=== PATIENT | male | born 1990 | race Two or more races ===

== ENCOUNTER 2017-03-01 11:41 | Emergency (ER) | payer MEDICAID ==
[~2017-03-01] VITALS: Ht 177.8 cm; Wt 77.1 kg
[2017-03-01 12:55] LABS: Basophils # (auto) 0 uL; Basophils % (auto) 0.4 % (0.0-2.0); Eosinophils # (auto) 0.1 uL; Eosinophils % (auto) 0.7 % (0.0-7.0); Hematocrit 45.8 % (41.0-53.0); Hemoglobin 15.6 g/dL (13.5-17.5); Lymphocytes # (auto) 1.8 uL; Lymphocytes % (auto) 16.1 % (10.0-50.0); Mean Corpuscular Hemoglobin 31.3 pg (28.0-32.0); Mean Corpuscular Hgb Conc. 34.2 g/dL (32.0-36.0); Mean Corpuscular Volume 91.6 fL (80.0-100.0); Mean Platelet Volume 7.9 fL (6.9-10.8); Monocytes # (auto) 0.8 uL; Monocytes % (auto) 7.1 % (0.0-12.0); Neutrophils # (auto) 8.4 uL; Neutrophils % (auto) 75.7 % (37.0-80.0); Nucleated Red Blood Cells % 0.1 %; Platelet Count (auto) 233 10^3/uL (140-450); Red Cell Distribution Width 12.8 % (11.8-14.3)
[2017-03-01 13:10] LABS: Albumin 4.4 g/dL (3.4-5.0); Anion Gap 7 (5-15); Blood Urea Nitrogen 13 mg/dL (7-18); Calcium 9.1 mg/dL (8.5-10.1); Carbon Dioxide 26 mmol/L (21-32); Chloride 110 mmol/L (98-107); Glucose 86 mg/dL (74-106); Magnesium 2.1 mg/dL (1.6-2.6); Potassium 4.2 mmol/L (3.5-5.1); Sodium 143 mmol/L (136-145)
[2017-03-01 13:13] LABS: Aspartate Aminotransferase 14 U/L (15-37); BUN/Creatinine Ratio 14.8; GFR African American 134 mL/min; GFR Non-African American 110 mL/min
[2017-03-01 13:18] LABS: Alkaline Phosphatase 102 U/L (45-117); Bilirubin, Total 0.2 mg/dL (0.2-1.0); Total Protein 7.9 g/dL (6.4-8.2)
[2017-03-01 14:12] LABS: Urine Bilirubin Negative (Negative); Urine Blood Negative /uL (Negative); Urine Glucose Normal (Normal); Urine Ketone Negative (Negative); Urine Nitrite Negative (Negative); Urine RBC <1 /hpf (0 - 3); Urine Urobilinogen Normal (Negative)
[2017-03-01 14:13] LABS: Urine Color Straw (Yellow)
[2017-03-01] MEDS ORDERED: cefTRIAXone W LIDOCAINE 1 GM IM IM ONE (20:45)
[2017-03-01] MEDS ORDERED: ASPirin 81 mg TAB PO ONE (20:45)
[2017-03-01 21:04] VITALS: BP 125/75
== END 2017-03-01 21:08 | disposition home or self-care (01) ==
LOC: ER 11:41 → EDBD 11:41 → EDUNIT# 11:41 → ER 21:08
DX: F12.10 Cannabis abuse, uncomplicated (principal); R07.89 Other chest pain; F17.210 Nicotine dependence, cigarettes, uncomplicated
CPT/HCPCS: 36415; 71020; 80053; 81001; 83735; 84484; 85025; 93005; 96372; 99285; J0696

== ENCOUNTER 2017-03-03 22:07 | Inpatient (IN) | payer MEDICAID ==
[~2017-03-03] VITALS: Ht 177.8 cm; Wt 81.4 kg
[2017-03-03 23:45] LABS: Urine Bilirubin Negative (Negative); Urine Blood Negative /uL (Negative); Urine Color Yellow (Yellow); Urine Glucose 3+ mg/dL (Normal); Urine Ketone 1+ (Negative); Urine Mucus FEW (None Seen); Urine Nitrite Negative (Negative); Urine RBC 1 /hpf (0 - 3); Urine Squamous Epithelial Cell FEW /hpf (<5); Urine pH 6.5 (5.0-8.0)
[2017-03-03 23:46] LABS: Basophils # (auto) 0.1 uL; Basophils % (auto) 0.3 % (0.0-2.0); Eosinophils # (auto) 0 uL; Eosinophils % (auto) 0.1 % (0.0-7.0); Hematocrit 42.4 % (41.0-53.0); Hemoglobin 14.3 g/dL (13.5-17.5); Lymphocytes # (auto) 1.8 uL; Lymphocytes % (auto) 9.6 % (10.0-50.0); Mean Corpuscular Hemoglobin 30.7 pg (28.0-32.0); Mean Corpuscular Hgb Conc. 33.8 g/dL (32.0-36.0); Mean Corpuscular Volume 90.9 fL (80.0-100.0); Mean Platelet Volume 7.8 fL (6.9-10.8); Monocytes # (auto) 1.2 uL; Monocytes % (auto) 6.2 % (0.0-12.0); Neutrophils % (auto) 83.8 % (37.0-80.0); Platelet Count (auto) 236 10^3/uL (140-450); Red Cell Distribution Width 12.7 % (11.8-14.3)
[2017-03-04 00:01] LABS: Albumin 4.2 g/dL (3.4-5.0); Anion Gap 14 (5-15); BUN/Creatinine Ratio 11.2; Blood Urea Nitrogen 12 mg/dL (7-18); Calcium 8.4 mg/dL (8.5-10.1); Carbon Dioxide 23 mmol/L (21-32); Chloride 106 mmol/L (98-107); GFR African American 107 mL/min; GFR Non-African American 88 mL/min; Glucose 240 mg/dL (74-106); Sodium 143 mmol/L (136-145)
[2017-03-04 00:06] LABS: Alkaline Phosphatase 91 U/L (45-117); Aspartate Aminotransferase 22 U/L (15-37); Bilirubin, Total 0.4 mg/dL (0.2-1.0); Total Protein 7.6 g/dL (6.4-8.2)
[2017-03-04] MEDS ORDERED: cefTRIAXone 1GM/50ML D5W 50 ML IV ONE (02:00)
[2017-03-04] MEDS ORDERED: SODIUM CHLORIDE 0.9% 1,000 ML IV ONE ×2 (02:40→05:45)
[2017-03-04] MEDS: POTASSIUM CHL 20MEQ/100ML 100 ML IV SCH ×2 (02:42→04:28)
[2017-03-04] MEDS ORDERED: InsuLIN REG 1unit/0.01ml Soln (100units/ml) IV ONE (03:45)
[2017-03-04 04:18] LABS: Lactic Acid w/Reflex 5.8 mmol/L (0.4-2.0)
[2017-03-04 04:21] LABS: REFLEX LACTIC ACID YES OR NO YES
[2017-03-04] MEDS ORDERED: ACETAMINOPHEN 500 MG TAB PO PRN (05:45)
[2017-03-04] MEDS ORDERED: DEXTROSE (50%) 50ML SYRG IV PRN (05:45)
[2017-03-04] MEDS ORDERED: ONDANSETRON HCL 4 MG/2 ML VIAL IV PRN (05:45)
[2017-03-04] MEDS: InsuLIN REG 1unit/0.01ml Soln (100units/ml) SC SCH ×2 (05:58→11:29)
[2017-03-04] MEDS: ACCU-CHEK COMFORT CURVE STRIP VI SCH ×2 (05:58→11:28)
[2017-03-04] MEDS ORDERED: metroNIDAZOLE 500 MG TAB PO SCH (06:00)
[2017-03-04 09:00] VITALS: BP 121/64
[2017-03-04] MEDS ORDERED: INFLUENZA QUAD 2017-2018 0.5 ML SYRG IM ONE (10:15)
[2017-03-04 12:54] VITALS: BP 132/73
[2017-03-04 14:02] LABS: Basophils # (auto) 0 uL; Basophils % (auto) 0.3 % (0.0-2.0); Eosinophils # (auto) 0 uL; Eosinophils % (auto) 0.2 % (0.0-7.0); Hematocrit 41.2 % (41.0-53.0); Hemoglobin 14.1 g/dL (13.5-17.5); Lymphocytes # (auto) 1.6 uL; Lymphocytes % (auto) 16.9 % (10.0-50.0); Mean Corpuscular Hgb Conc. 34.2 g/dL (32.0-36.0); Mean Corpuscular Volume 90.7 fL (80.0-100.0); Mean Platelet Volume 7.8 fL (6.9-10.8); Monocytes # (auto) 0.7 uL; Monocytes % (auto) 7.9 % (0.0-12.0); Neutrophils % (auto) 74.7 % (37.0-80.0); Platelet Count (auto) 224 10^3/uL (140-450); White Blood Cell 9.3 10^3/uL (4.4-10.8)
[2017-03-04] MEDS: SODIUM CHLORIDE 0.9% 1,000 ML IV SCH (15:49)
[2017-03-04 17:01] VITALS: BP 134/77
[2017-03-04 21:34] VITALS: BP 123/73
[2017-03-04] MEDS ORDERED: InsuLIN REG 1unit/0.01ml Soln (100units/ml) SC SCH (22:00)
[2017-03-05] MEDS ORDERED: cefTRIAXone 1GM/50ML D5W 50 ML IV SCH (02:00)
[2017-03-05 05:19] VITALS: BP 129/72
[2017-03-05] MEDS: SODIUM CHLORIDE 0.9% 1,000 ML IV SCH (06:30)
[2017-03-05 07:52] LABS: B-Type Natriuretic Peptide 31.9 pg/mL (0-100)
[2017-03-05 08:00] VITALS: BP 108/47
[2017-03-05 08:09] LABS: Anion Gap 6 (5-15); BUN/Creatinine Ratio 10.7; Blood Urea Nitrogen 9 mg/dL (7-18); Calcium 9.3 mg/dL (8.5-10.1); Carbon Dioxide 28 mmol/L (21-32); Chloride 108 mmol/L (98-107); Cholesterol 183 mg/dL (< 200); GFR African American 141 mL/min; GFR Non-African American 116 mL/min; Glucose 88 mg/dL (74-106); HDL Cholesterol 63 mg/dL (40-59); LDL Cholesterol 116 mg/dL (< 100); Potassium 4.6 mmol/L (3.5-5.1); Sodium 142 mmol/L (136-145); Triglycerides 115 mg/dL (< 150)
[2017-03-05 09:23] VITALS: BP 108/47
[2017-03-05 11:08] VITALS: BP 108/47
[2017-03-05 12:47] VITALS: BP 107/71
== END 2017-03-05 13:40 | disposition home or self-care (01) | DRG 201 ==
LOC: ER 22:07 → OVERFLOW 22:08 → EAST 03-04 09:32 → TELE-EAST 03-04 13:21
PROVIDERS: ADMIT Nurse Practitioner Family; ATTEND Internal Medicine
DX: R00.0 Tachycardia, unspecified (principal); E87.2 Acidosis; E87.6 Hypokalemia; E86.0 Dehydration; R00.2 Palpitations; D72.829 Elevated white blood cell count, unspecified; F17.210 Nicotine dependence, cigarettes, uncomplicated; F12.10 Cannabis abuse, uncomplicated; Z82.49 Family history of ischemic heart disease and other diseases of the circulatory system; Z83.3 Family history of diabetes mellitus; Z71.51 Drug abuse counseling and surveillance of drug abuser; R10.9 Unspecified abdominal pain
CPT/HCPCS: 36415; 71020; 74176; 80048; 80053; 80061; 80307; 81001; 82962; 83036; 83605; 83880; 84443; 84484; 85025; 85379; 87040; 93005; 93306; 96361; 96365; J0696; J3480

== ENCOUNTER 2017-03-11 22:18 | Emergency (ER) | payer MEDICAID ==
[~2017-03-11] VITALS: Ht 177.8 cm; Wt 77.1 kg
[2017-03-12 02:32] VITALS: BP 130/84
== END 2017-03-12 02:46 | disposition home or self-care (01) ==
LOC: EDBD 22:18 → ER 22:26
DX: J02.9 Acute pharyngitis, unspecified (principal); F17.210 Nicotine dependence, cigarettes, uncomplicated; F12.10 Cannabis abuse, uncomplicated
CPT/HCPCS: 93005

== ENCOUNTER 2024-09-09 02:15 | Emergency (ER) | payer MEDICAID, OTHER ==
[~2024-09-09] VITALS: Ht 175.3 cm; Wt 89.2 kg
--- NOTE | 2024-09-09 02:20 | ED.PDOC ---
Back pain HPI HPI Comments PT PRESENTED TO ED FOR RIGHT SIDED BACK PAIN X3 HOURS WITH N/V AFTER EATING "FATTY FOODS". PT STATED PREVIOUS EPISODE X1 YEAR AG Time Seen by MD: :17 Reviewed Notes: Nurses Notes, Medications, Allergies Allergies: Coded Allergies: NO KNOWN ALLERGIES (Unverified , 03/01/17) Home Meds Active Scripts Pantoprazole Sodium Sesquihydr (Protonix) 40 Mg Tab, 40 MG PO DAILY for 14 Days, #14 TAB Prov:EDEL AGUILLON TRAFFIC SIGNAL TECHNICIAN 09/09/24 Information Source: Patient Past Medical History PAST MEDICAL HISTORY: Denies Surgical History: Denies all surgeries Family History Family History: Unknown Social History Smoker: Cigarettes, Less Than 1 Pack/Day Alcohol: Occasionally Drugs: Marijuana Lives In: Home Constitutional: denies: chills, diaphoresis, fatigue, fever, malaise, sweats, weakness, others EENTM: denies: blurred vision, double vision, ear bleeding, ear discharge, ear drainage, ear pain, ear ringing, eye pain, eye redness, hearing loss, mouth pain, mouth swelling, nasal discharge, nose bleeding, nose congestion, nose pain, photophobia, tearing, throat pain, throat swelling, voice changes, others Respiratory: denies: cough, hemoptysis, orthopnea, SOB at rest, shortness of breath, SOB with excertion, stridor, wheezing, others Gastrointestinal: reports: nausea; denies: abdomen distended, abdominal pain, blood streaked bowels, constipated, diarrhea, dysphagia, difficulty swallowing, hematemesis, melena, poor appetite, poor fluid intake, rectal bleeding, rectal pain, vomiting, others Genitourinary: denies: burning, dysuria, flank pain, frequency, hematuria, incontinence, penile discharge, penile sore, pain, testicle pain, testicle swelling, urgency, others Neurological: denies: dizziness, fainting, headache, left sided numbness, left sided weakness, numbness, paresthesia, pre-existing deficit, right sided numbness, right sided weakness, seizure, speech problems, tingling, tremors, weakness, others Musculoskeletal: reports: back pain; denies: gout, joint pain, joint swelling, muscle pain, muscle stiffness, neck pain, others Integumetry: denies: bruises, change in color, change in hair/nails, dryness, laceration, lesions, lumps, rash, wounds, others Allergic/Immunocompromised: denies: Difficulty Healing, Frequent Infections, Hives, Itching, others Hematologic/Lymphatic: denies: anemia, blood clots, easy bleeding, easy bruising, swollen glands, others Endocrine: denies: excessive hunger, excessive sweating, excessive thirst, excessive urination, flushing, intolerance to cold, intolerance to heat, unexplained weight gain, unexplained weight loss, others Psychiatric: denies: anxiety, bipolar disorder, depression, hopeless, panic disorder, schizophrenia, sleepless, suicidal, others Physical Exam General Appearance: No Apparent Distress, Normal HEENT: Pharynx Normal Neck: Full Range of Motion, Non-Tender Respiratory: Chest Non-Tender, Lungs Clear, No Accessory Muscle Use, No Respiratory Distress, Normal Breath Sounds Cardiovascular: No Edema, No JVD, No Murmur, No Gallop, Normal Peripheral Pulses, Regular Rate/Rhythm Breast Exam: Deferred Gastrointestinal: Epigastric, No Organomegaly, No Pulsatile Mass, Normal Bowel Sounds, Soft, Tenderness Genitalia: Deferred Pelvic: Deferred Rectal: Deferred Extremities: Normal capillary refill, Normal inspection, Normal range of motion, Non-tender, No pedal edema Musculoskeletal : Apperance: Normal Neurologic: Alert, event marketing representative II-XII nml as Tested, No Motor Deficits, Normal Affect, Normal Mood, No Sensory Deficits Cerebellar Function: Normal Reflexes: Normal Skin: Dry, Normal Color, Warm Lymphatic: No Adenopathy Was a procedure done? Was a procedure done?: No Back Pain Differential Dx Differential Diagnosis: Fracture, Musculoskeletal Pain X-Ray, Labs, Meds, VS Vital Signs Date Time Temp Pulse Resp B/P (MAP) Pulse Ox O2 Delivery O2 Flow Rate FiO2 09/09/24 03:26 72 17 97 Room Air 09/09/24 03:26 98.0 72 17 129/94 (106) 97 98.0 09/09/24 02:29 98.0 75 18 144/70 (94) 96 98.0 Current Medications Medications (Trade) Dose Ordered Sig/Magali Route Start Time Stop Time Status Last Admin Al Hydrox/Mg Hydrox/Simethicone (Maalox Plus) 30 ml ONCE ONCE PO 09/09/24 03:15 09/09/24 03:16 DC 09/09/24 03:21 Lidocaine HCl (Xylocaine 2% Viscous) 10 ml ONCE ONCE PO 09/09/24 03:15 09/09/24 03:16 DC 09/09/24 03:21 Belladonna Alkaloids/ Phenobarbital ( Elixir) 5 ml ONCE ONCE PO 09/09/24 03:15 09/09/24 03:16 DC 09/09/24 03:22 X-Ray, Labs, Meds, VS Comment Patient given GI cocktail reports complete resolution of pain discharge at this time. Likely secondary to esophageal reflux. Script trial of Protonix once daily times 14 days. Advised take medications as prescribed side effects discussed. Advised on diet avoid greasy fatty food and spicy foods follow up with his PCP in 2 days ER return precautions given patient indicates understanding and agrees with discharge plan of care Time of 1ST Reevaluation: 02:20 Reevaluation 1ST: Unchanged Time of 2ND Reevaluation: 03:55 Reevaluation 2ND: Improved Patient Education/Counseling: Diagnosis, Treatment, Prognosis, Need For Follow Up Family Education/Counseling: No Family Present Departure 1 Departure Time of Disposition: 03:57 Impression: Primary Impression: Gastro-esophageal reflux Qualified Codes: K21.9 - Gastro-esophageal reflux disease without esophagitis Disposition: 01 HOME / SELF CARE / HOMELESS Condition: Stable e-Prescriptions Pantoprazole Sodium Sesquihydr (Protonix) 40 Mg Tab 40 MG PO DAILY for 14 Days, #14 TAB Prov: EDEL AGUILLON 09/09/24 Discharged With: Self Critical Care Note Critical Care Time?: No Stability Stability form required: EDEL Griffin September 09, 2024 02:20
[2024-09-09] MEDS: MAALOX PLUS or MAALOX 30 ML PO ONE (03:21)
[2024-09-09] MEDS: LIDOCAINE VISCOUS 2% 15ML UD PO ONE (03:21)
[2024-09-09] MEDS: DONNATAL 5ml ORAL Elix (BELLADONNA ALK-PHENOBARB) PO ONE (03:22)
[2024-09-09 03:26] VITALS: BP 129/94; PULSE 72; RESP 17; TEMP 98; O2SAT 97
[2024-09-09] MEDS ORDERED: PANT40TA2 PO (03:58)
== END 2024-09-09 04:05 | disposition home or self-care (01) ==
LOC: ER 02:15
DX: K21.9 Gastro-esophageal reflux disease without esophagitis (principal); F17.210 Nicotine dependence, cigarettes, uncomplicated; F12.90 Cannabis use, unspecified, uncomplicated; Z79.899 Other long term (current) drug therapy